=== PATIENT | male | born 1975 | race Caucasian/White ===

== ENCOUNTER 2023-05-05 17:08 | Emergency (ER) | payer BC, SELFPAY ==
[2023-05-05 17:34] VITALS: BP 151/115; PULSE 106; RESP 20; TEMP 36.3; O2SAT 98; BMI 45.5
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
[2023-05-05] MEDS: Diphth,Pertuss(Acell),Tet Vac 0.5 ML Vial IM (18:58)
--- OUTSIDE RECORDS SUMMARY | 2023-05-05 19:14 | XMS RPT_ITS | CCD ---
Author Name Unknown Address [address] [place] [address] Organization [facility] Care Team Providers Care University Professor Name Role Phone EMELI ESCOBAR Primary Care Unavailable ISSA BALDERAS Admitting Unavailable ISSA BALDERAS Attending Unavailable CHRISTOPHER RAPHAEL Attending Unavailable EMELI ESCOBAR Primary Care Unavailable CHRISTOPHER RAPHAEL Attending Unavailable EMELI ESCOBAR Primary Care Unavailable OSEI BEE, AAYUSH Attending Unavailable EMELI ESCOBAR Primary Care Unavailable OSEI BEE, AAYUSH Attending Unavailable EMELI ESCOBAR Primary Care Unavailable EMELI ESCOBAR Primary Care Unavailable AAYUSH FRANZ MD Attending Unavailable EMELI ESCOBAR Primary Care Unavailable AAYUSH FRANZ MD Attending Unavailable EMELI ESCOBAR Primary Care Unavailable AAYUSH FRANZ MD Attending Unavailable OSEI BEE, AAYUSH Attending Unavailable EMELI ESCOBAR Primary Care Unavailable Problems Problem Classification Problem Date Documented Da te Episodic/Chronic Anxiety disorders (1 source) Anxiety disorder, unspecified Onset: 04-22-2018 Chronic Disorders of lipid metabolism (1 source) Hyperlipidemia, unspecified Onset: 04-22-2018 Chronic Esophageal disorders (1 source) Esophageal disorders Onset: 04-22-2018 Essential hypertension (3 sources) Essential (primary) hypertension; Translations: [Essential (primary) hypertension] Onset: 04-22-2018 Chronic Nonspecific chest pain (3 sources) Chest pain, unspecified; Translations: [Chest pain, unspecified] Onset: 05-05-2018 Episodic Other nutritional; endocrine; and metabolic disorders (1 source) Body mass index (BMI) 40.0-44.9, adult Onset: 04-22-2018 Chronic Substance-related disorders (2 sources) Nicotine dependence, unspecified, uncomplicated; Translations: [Nicotine dependence, cigarettes, uncomplicated] Onset: 04-22-2018 Chronic Unclassified (2 sources) Family hx of ischem heart dis and oth dis of the circ sys; Translations: [Family hx of ischem heart dis and oth dis of the circ sys] Onset: 04-22-2018 Unclassified (1 source) Morbid (severe) obesity due to excess calories Onset: 04-22-2018 Results Test Name Value Interpretation Reference Range Facil ity Encounters Encounter Date Encounter Type Care Provider Facility Start: 04-22-2023 End: 04-23-2023 ambulatory EMELI CookClifford COTTERSHAWN Facility:[facility] Start: 04-16-2023 End: 04-17-2023 ambulatory AAYUSH FRANZ MD Facility:[facility] Start: 04-08-2023 End: 04-09-2023 ambulatory AAYUSH FRANZ MD Facility:[id number] Start: 03-25-2023 ambulatory [facility] Start: 03-09-2023 ambulatory EMELI ESCOBAR Facility :[facility] Start: 03-03-2023 End: 03-04-2023 ambulatory [facility] ESCOBAR [facility] Start: 07-29-2018 Patient encounter procedure CHRISTOPHER RAPHAEL Facility:[id number] Start: 05-05-2018 Patient encounter procedure CHRISTOPHER RAPHAEL Facility:[id number] Start: 04-22-2018 End: 04-23-2018 Patient encounter procedure EMELI ESCOBAR Facility:[facility] [employer] Payers Date Payer Category Payer Unknown [id number] [id number] 1973 Unknown [id number] 2.16.8 [id number] 1973 Unknown [id number] 2.16.8 [id number] 1973 Unknown [id number] 2.16.8 [id number] 1973 Unknown [id number] 2.16.8 [id number] 1973 Unknown [id number] 2.16.8 [id number] 1973 Unknown [id number] 2.16.8 [id number] 1973 Unknown [id number] 2.16.8 [id number] 1973 Unknown [id number] 2.16.8 [id number] Private Health Insurance [id number] Unknown Unknown [id number] Summary Purpose Family History No Family History Records FoundNo Family History Records FoundNo Family History Records FoundNo Family History Records FoundNo Family History Records FoundNo Family History Records Found Advance Directives No Advanced Directives Records FoundNo Advanced Directives Records FoundNo Advanced Directives Records FoundNo Advanced Directives Records FoundNo Advanced Directives Records FoundNo Advanced Directives Records Found Additional Source Comments (unrecognized sect ion and content) No Status Records FoundNo Status Records FoundNo Status Records FoundNo Status Records FoundNo Status Records FoundNo Status Records Found INFORMATION SOURCE (unrecogn ized section and content) DATE CREATED AUTHOR AUTHOR'S ORGANIZ ATION 03/24/2019 [facility] DATE CREATED AUTHOR AUTHOR'S ORGANIZ ATION 12/15/2019 [facility] DATE CREATED AUTHOR AUTHOR'S ORGANIZ ATION 07/20/2020 [facility] DATE CREATED AUTHOR AUTHOR'S ORGANIZ ATION 08/13/2021 [facility] DATE CREATED AUTHOR AUTHOR'S ORGANIZ ATION 05/05/2023 [facility] FOR RECORDS PERTAINING TO PATIENTS WHO ARE OR HAVE BEEN ENROLLED IN A CHEMICAL DEPENDENCY/SUBSTANCEABUSE PROGRAM, SOME INFORMATION MAY BE OMITTED. This clinical summary was aggregated from multiple sources. Caution should be exercised in using it in the provision of clinical care. This summary normalizes information from multiple sources, and as a consequence, information in this document may materially change the coding, format and clinical context of patient data. In addition, data may be omitted in some cases. CLINICAL DECISIONS SHOULD BE BASED ON THE PRIMARY CLINICAL RECORDS. [facility] [employer] provides no warranty or guarantee of the accuracy or completeness of information in this document.
[2023-05-05 19:19] VITALS: BP 151/115; PULSE 106; RESP 20; TEMP 36.3; O2SAT 98
== END 2023-05-05 19:19 | disposition home or self-care (01) ==
LOC: ED 19:11
PROVIDERS: Emergency Provider Emergency Medicine; Visit Provider Emergency Medicine
DX: S00.81XA Abrasion of other part of head, initial encounter (principal); S80.12XA Contusion of left lower leg, initial encounter; V43.52XA Car driver injured in collision with other type car in traffic accident, initial encounter; W22.11XA Striking against or struck by driver side automobile airbag, initial encounter; I10 Essential (primary) hypertension; Z79.899 Other long term (current) drug therapy; Z23 Encounter for immunization
CPT/HCPCS: 90471; 90715; 99282